=== PATIENT | female | born 2000 | race Caucasian/White ===

== ENCOUNTER 2018-01-31 13:25 | Emergency (ER) | payer BC, SELFPAY ==
[2018-01-31 13:32] VITALS: BP 151/85; PULSE 133; RESP 18; TEMP 37.1; O2SAT 97
--- NOTE | 2018-01-31 13:51 | ED.SKABFB ---
HPI - Skin/Abscess/Foreign Bdy <Angelika Gibbons PA-C - Last Filed: 01/31/18 22:29> General Chief complaint: Skin/Abscess/Foreign Body Stated complaint: RASH ALL OVER BODY Time Seen by Provider: 01/31/18 13:50 Source: patient Mode of arrival: ambulatory Limitations: no limitations History of Present Illness HPI narrative: Patient complains of recurrent rash. She states she came here from [place] for work this summer and this started 2 or 3 weeks later. She has already been seen by a PCP here and also 1 walk-in clinic, had an injection or a few days of steroids each time and both times this improved but came back. She states that it tends to be worse in the morning, intensely itchy. She states that she does not have any on her face now but had previously along with some lip swelling. Today, she denies any facial or throat swelling, nor wheeze or dyspnea. She has been taking Zyrtec during the day and Benadryl at night, but still has itching night. She states that she did not have this until she came here so wonders whether it is due to climate. She states that her mom does get hives as well. She denies any new medications or skin products Related Data Home Medications Medication Instructions Recorded Confirmed cetirizine 10 mg capsule 10 mg PO DAILY 01/09/18 01/31/18 norethindrone-e.estradiol-iron [Lo 1 tab PO QPM 01/31/18 01/31/18 Loestrin Fe] Previous Rx's Medication Instructions Recorded hydroxyzine pamoate 50 mg PO BEDTIME PRN #14 cap 01/31/18 prednisone 40 mg PO DAILY 12 Days #15 tab 01/31/18 Allergies Allergy/AdvReac Type Severity Reaction Status Date / Time No Known Drug Allergies Allergy Verified 01/09/18 17:52 Review of Systems <Angelika Gibbons PA-C - Last Filed: 01/31/18 22:29> Review of Systems All systems reviewed & are unremarkable except as noted in HPI and below Exam <Angelika Gibbons PA-C - Last Filed: 01/31/18 22:29> Narrative Exam Narrative: Initial Vital Signs Initial Vital Signs: Vital Signs Temperature 98.8 F 01/31/18 13:32 Pulse Rate 133 H 01/31/18 13:32 Respiratory Rate 18 01/31/18 13:32 Blood Pressure 151/85 H 01/31/18 13:32 Pulse Oximetry 97 01/31/18 13:32 GENERAL APPEARANCE: Patient sitting comfortably, in no distress. EYES: PERRL, EOMI. ORAL CAVITY: Normal oropharynx, no angioedema. THROAT: Clear. NECK/THYROID: Neck supple, full range of motion, no masses LUNGS: Clear to auscultation bilaterally, no cough on exam. HEART: RRR without murmur, nl S1, S2, no S3 or S4. EXTREMITIES: No cyanosis or edema DERM: scattered pink wheals and patches most concentrated on the anterior thighs, posterior lower back, but also scattered on the trunk and the remainder of the extremities. There are no facial lesions <Yin Billingsley DO - Last Filed: 02/01/18 08:05> Initial Vital Signs Initial Vital Signs: Vital Signs Temperature 98.8 F 01/31/18 13:32 Pulse Rate 133 H 01/31/18 13:32 Respiratory Rate 18 01/31/18 13:32 Blood Pressure 151/85 H 01/31/18 13:32 Pulse Oximetry 97 01/31/18 13:32 Course <Angelika Gibbons PA-C - Last Filed: 01/31/18 22:29> Vital Signs - 8 hr 01/31/18 15:02 Pulse Rate 68 Respiratory Rate 18 Blood Pressure [Right Wrist] 123/84 H Pulse Oximetry 98 <Yin Billingsley DO - Last Filed: 02/01/18 08:05> Vital Signs - 8 hr 01/31/18 15:02 Pulse Rate 68 Respiratory Rate 18 Blood Pressure [Right Wrist] 123/84 H Pulse Oximetry 98 Discharge Plan Departure Patient Disposition: Home, Self-Care Clinical Impression: Urticaria Discharge Date/Time: 01/31/18 15:03 Interventions: ED Discharge Assessment Last Done: 01/31/18 15:03 Instructions: DI for Hives Activity Restrictions/Additional Instructions: Please return as we talked about if you have acutely worsening symptoms such as facial swelling or difficulty breathing again. Otherwise, I have sent in a prescription of steroids for you to restart with a longer course. Increase your Zyrtec to 1 tab a.m. and afternoon, and I have sent in a prescription antihistamine for you to use at night that is slightly longer acting then your Benadryl. Please try this instead to see which [address] with this new antihistamine as it can make you sleepy like Benadryl. Please avoid any new skin products, and as we talked about, wash all of her bedding in a Free and Clear detergent since your hives tend to be worse in the morning. Also talk with your primary care provider when you get home about whether you should have further testing with an electronics lead since you may have some family history of recurrent hives. Prescriptions: New prednisone 20 mg tablet 40 mg PO DAILY 12 Days Qty: 15 RF: 0 hydroxyzine pamoate 25 mg capsule 50 mg PO BEDTIME PRN (Reason: itching) Qty: 14 RF: 0 Discontinued diphenhydramine HCl [Benadryl Allergy] 25 mg Tablet 25 mg PO DAILY RF: 0 No Action cetirizine [Zyrtec] 10 mg capsule 10 mg PO DAILY RF: 0 norethindrone-e.estradiol-iron [Lo Loestrin Fe] 1 mg-10 mcg (24)/10 mcg (2) tablet 1 tab PO QPM RF: 0 Referrals: Eva Calles PA-C [[employer]] - <Yin Billingsley DO - Last Filed: 02/01/18 08:05> [facility] Attestation: I was immediately available in the department for consultation. Documentation has been reviewed. I agree with assessment and plan.
[2018-01-31 15:02] VITALS: BP 123/84; PULSE 68; RESP 18; O2SAT 98
== END 2018-01-31 15:03 | disposition home or self-care (01) ==
PROVIDERS: Emergency Provider Internal Medicine
DX: L50.9 Urticaria, unspecified (principal)
CPT/HCPCS: 99282